=== PATIENT | male | born 1945 | race Caucasian/White ===

== ENCOUNTER 2023-03-16 11:00 | Outpatient (CLI) | payer OTHER, SELFPAY ==
--- NOTE | 2023-03-16 11:14 | USCV_ITS ---
Ortiz Youngblood Age: 78 Gender: M : 1945 Exam Date: 03/16/2023 11:26 Ordering Phys: Real Walker Technologist: PAULINA [place] [facility] [place] PT HAD EXPOSURE TO BURN PITS IN [place]. AFIB BP: 120 / 60 HR: 51 Rhythm: Atrial flutter Technical Quality: Adequate MEASUREMENTS (Male / Female) Normal Values 2D ECHO LV Diastolic Diameter PLAX 5.4 cm 4.2 - 5.9 / 3.9 - 5.3 cm LV Systolic Diameter PLAX 3.3 cm LV Chamber Size 4.9 cm IVS Diastolic Thickness 1.3 cm 0.6 - 1.0 / 0.6 - 0.9 cm IVS Systolic Thickness 1.3 cm LVPW Diastolic Thickness 1.9 cm 0.6 - 1.0 / 0.6 - 0.9 cm LVPW Systolic Thickness 2.2 cm RV Chamber Size 3.7 cm LVOT Diameter 2.0 cm LV Ejection Fraction 2D Teich 69.4 % LV Ejection Fraction MOD 2C 54.0 % LV Ejection Fraction 2C AL 54.3 % LA Diameter 4.0 cm LA Width 3.5 cm LA Height 5.2 cm RA Width 4.1 cm RA Height 4.3 cm Aorta at Sinotubular Diameter 3.4 cm IVC Diameter 2.3 cm M-MODE Aortic Annulus Diameter 3.1 cm LA Ao Ratio MM 1.5 MV E Point Septal Separation 0.8 cm DOPPLER AV Peak Velocity 156.0 cm/s LVOT Peak Velocity 97.0 cm/s AV Area Cont Eq vti 1.9 cm squared AV Area Cont Eq pk 2.0 cm squared MV Area PHT 3.6 cm squared Mitral E to A Ratio 2.1 MV E' Velocity 72.8 cm/s Mitral E to MV E' Ratio 22.4 Mitral E to LV E' Lateral Ratio 18.5 Mitral E to LV E' Septal Ratio 28.2 TR Peak Velocity 128.7 cm/s TR Peak Gradient 6.6 mmHg TR Mean Velocity 134.3 cm/s TR Mean Gradient 8.4 mmHg TR Velocity Time Integral 52.5 cm TV Peak E Velocity 47.0 cm/s Right Atrial Pressure 3.0 mmHg Pulmonary Artery Systolic Pressu 9.6 mmHg FINDINGS Left Ventricle Mild diffuse hypokinesia of the left ventricle. There LV ejection fraction around 53%.mild left ventricular hypertrophy. Grade III/IV diastolic dysfunction (restrictive filling pattern), severely elevated filling pressures. Right Ventricle The right ventricle is normal in size and function. Right Atrium Mildly increased right atrial size. Left Atrium Mildly increased left atrial size. Mitral Valve Mild-moderate mitral valve regurgitation. Aortic Valve Thickened aortic valve. Tricuspid Valve Trace tricuspid valve regurgitation. Pulmonic Valve Pulmonic valve not well visualized. Pericardium Normal pericardium without effusion. Aorta Normal aortic annulus size. IVC The inferior vena cava appears normal. CONCLUSIONS Mild diffuse hypokinesia of the left ventricle. There LV ejection fraction around 53%.mild left ventricular hypertrophy. Grade III/IV diastolic dysfunction (restrictive filling pattern), severely elevated filling pressures. Mild biatrial enlargement. Mild-moderate mitral valve regurgitation. Thickened aortic valve. Trace tricuspid valve regurgitation. Estimated pulmonary artery peak systolic pressure possibly within normal limits. There is no pericardial effusion. No similar previous studies are available for comparison Dr Manolo Sims MD FACC (Electronically Signed) Final Date: 18 March 2023 06:33 S
== END 2023-03-16 11:01 | disposition home or self-care (01) ==
PROVIDERS: PCP Nurse Practitioner Family; Visit Provider Chiropractor
DX: I25.10 Atherosclerotic heart disease of native coronary artery without angina pectoris (principal); I35.8 Other nonrheumatic aortic valve disorders; I34.0 Nonrheumatic mitral (valve) insufficiency; I51.89 Other ill-defined heart diseases; I51.7 Cardiomegaly
CPT/HCPCS: 93306